=== PATIENT | female | born 1960 | race Caucasian/White ===

== ENCOUNTER → 2017-12-18 | Outpatient (CLI) | payer OTHER ==
[~2017-12-18] MED LIST: LIPI10TA OR; PENI500T PO; SYNT25TA; ZINCLOZ2 PO; ZOLO25TA PO
[2017-12-18 09:56] LABS: HEMATOCRIT 39.3 % (35.0-46.0); HEMOGLOBIN 13.1 GM/DL (11.6-15.3); MEAN CELL VOLUME 85.6 FL (80.0-100.0); MEAN CORPUSCULAR HEMOGLOBIN 28.6 PG (27.0-34.0); MEAN CORPUSCULAR HGB CONC 33.4 % (32.0-36.0); MEAN PLATELET VOLUME 9.2 FL (7.0-11.0); PLATELET COUNT 221 TH/MM3 (150-450); RED BLOOD COUNT 4.59 MIL/MM3 (4.00-5.30); RED CELL DISTRIBUTION WIDTH 13.1 % (11.6-17.2)
[2017-12-18 10:15] LABS: BILIRUBIN, URINE NEG (NEG); BLOOD, URINE NEG (NEG); GLUCOSE,URINE NEG (NEG); KETONE, URINE NEG (NEG); MUCUS URINE FEW /lpf (OCC); NITRITE,URINE NEG (NEG); URINE COLOR YELLOW (YELLW/STRAW); URINE LEUKOCYTE ESTERASE NEG (NEG)
[2017-12-18 10:23] LABS: PROTHROMBIN TIME - PATIENT 10.2 SEC (9.8-11.6)
[2017-12-18 10:48] LABS: ALBUMIN 3.8 GM/DL (3.4-5.0); AST (GOT) 16 U/L (15-37); BICARBONATE 27.7 MEQ/L (21.0-32.0); BLOOD UREA NITROGEN 11 MG/DL (7-18); CALCIUM 9.1 MG/DL (8.5-10.1); CHLORIDE 106 MEQ/L (98-107); GLOMERULAR FILTRATION RATE 102 ML/MIN (>89); SODIUM (NA) 142 MEQ/L (136-145)
[2017-12-18 10:51] LABS: GLUCOSE,FASTING 88 MG/DL (74-99)
[2017-12-18 10:59] LABS: ALKALINE PHOSPHATASE 89 U/L (45-117); ALT (GPT) 23 U/L (10-53); TOTAL BILIRUBIN ADULT 0.5 MG/DL (0.2-1.0); TOTAL PROTEIN 8.1 GM/DL (6.4-8.2)
== END ==
LOC: CPRE 08:02
PROVIDERS: ATTEND Surgery
DX: Z01.810 Encounter for preprocedural cardiovascular examination (principal); Z01.812 Encounter for preprocedural laboratory examination; Z01.818 Encounter for other preprocedural examination; M79.609 Pain in unspecified limb
CPT/HCPCS: 36415; 80053; 81001; 85027; 85610; 85730

== ENCOUNTER 2018-01-02 05:38 | Inpatient (IN) ==
[2018-01-02] MEDS ORDERED: Metoprolol Tartrate 25 MG Tablet PO SCH (06:30)
[2018-01-02] MEDS ORDERED: Chlorhexidine 4% Topical 120 APPLIC/120 ML Bottle TOPICAL SCH (06:30)
[2018-01-02] MEDS ORDERED: Bupivacaine/Epi PF 0.25% Inj 20 ML, Bupivacaine Liposo PF 1.3% Inj 20 ML, Sodium Chlor ... P-ARTICULR SCH ×2 (06:30)
[2018-01-02] MEDS ORDERED: Chlorhexidine Gluconate 2% 1 Pack (2 Cloths) TOPICAL SCH (06:30)
[2018-01-02] MEDS ORDERED: Propofol Inj 500 MG/50 ML Vial ONE ×2 (06:46)
[2018-01-02] MEDS ORDERED: Bupivacaine/Dextrose 0.75% Inj 2 ML Ampul ONE (06:46)
[2018-01-02] MEDS ORDERED: ceFAZolin 2 GM Premix Inj 2 GM/50 ML PIGGYBACK IV.SIG SCH (07:00)
[2018-01-02] MEDS ORDERED: Tranexamic Acid Inj 749 MG in Sodium Chlor 0.9% Inj 100 ML IV.SIG SCH ×4 (07:00)
[2018-01-02] MEDS ORDERED: Sodium Chlor 0.9% Inj 500 ML IV.SIG SCH (07:00)
[2018-01-02] MEDS ORDERED: Bupivacaine Liposomal PF 1.3% Inj 20 ML Vial ONE (07:05)
[2018-01-02] MEDS ORDERED: Bupivacaine PF 0.5% Inj 30 ML Vial ONE (07:05)
[2018-01-02] MEDS ORDERED: EPINEPHrine PF/SF Inj 1 MG/ML Ampul I-OCULAR ONE (07:06)
[2018-01-02] MEDS ORDERED: Dexamethasone Inj 20 MG/5 ML Vial ONE (07:37)
[2018-01-02] MEDS: Vancomycin Inj 1 GM/200 ML PIGGYBACK IV.SIG SCH ×2 (07:45→08:38)
[2018-01-02] MEDS ORDERED: Morphine Inj 4 MG/ML Vial IV.PUSH PRN (07:58)
[2018-01-02] MEDS ORDERED: Post-op Orders (for Pharmacy) OTHER STA (07:58)
[2018-01-02] MEDS ORDERED: Bisacodyl 10 MG Supp RECTAL PRN (07:58)
[2018-01-02] MEDS ORDERED: Tranexamic Acid Inj 1,000 MG in Sodium Chlor 0.9% Inj 100 ML IV.SIG ONE (07:58)
[2018-01-02] MEDS ORDERED: Dexamethasone PF Inj 10 MG/ML Vial IV.PUSH SCH (08:00)
--- NOTE | 2018-01-02 10:43 | MP ---
cc: Nellie Blankenship MD DATE OF OPERATION: 01/02/2018 PREOPERATIVE DIAGNOSIS: Osteoarthritic degeneration, right knee. POSTOPERATIVE DIAGNOSIS: Osteoarthritic degeneration, right knee. SURGERY PERFORMED: Right total knee arthroplasty using Consensus components size 4 femur, 2 tibia, 1 patella, 10 standard insert and 2 batches of antibiotic-impregnated cement. SURGEON: Nellie Blankenship MD JANITOR CUSTODIAN: James Diallo CFA ANESTHESIA: Spinal. PROCEDURE: After successful induction of anesthesia, the patient is placed on the operating room table in the supine position. The knee is prepped and draped in the usual manner. A tourniquet is inflated at the upper thigh and set to 300 mmHg pressure after exsanguination of the lower extremity. A longitudinal incision is made extending from 3 inches proximal to the superior pole of the patella, across the patella in longitudinal fashion, and down past the insertion of the tibial tubercle into the proximal tibia. The incision is carried down through subcutaneous tissue along the medial aspect of the patella and retinaculum, down through the capsule to expose the knee joint. The patella and patellar tendon are freed up enough to allow the patella to be inverted and retracted off the lateral side of the knee joint. The knee joint is left exposed. Small osteophytes are removed. All soft tissue is removed to allow proper position of the femoral and tibial cutting jig guide. The first femoral jig is then inserted along the distal end of the femur after first measuring to decide whether this is a small, medium, or large component. The notch is then drilled and the tibial cutting guide inserted into the femoral cutting guide, along with the ankle brace to allow for proper measurement of the tibial cutting surface that needed to be resected. Pins are inserted into the tibial cutting jig and femoral cutting jig to hold them in place. An oscillating saw is then used to resect the surface of the tibia. The surface of the tibia is then completely removed using sharp and blunt dissection. The anterior and posterior cuts of the femur are then made as well using an oscillating saw through the cutting guide. All guides are then removed and the varus/valgus angulation cutting guide applied to the femur for proper measurement of the proper amount of valgus. The anterior cutting guide for the femur is then inserted at the anterior femoral cuts made. Next, the first block trial is inserted into the femur to allow for proper condyle drill holes to be made which are then made followed by removal of the bone between the condyles using an oscillating saw as well as the bone removed at the most posterior surface of the condyle. After this, this guide is removed and the chamfer cuts made using the chamfer cutting guide from both anterior and posterior. Next, the femoral trial is then inserted, the tibial surface reflected anterior to expose the tibial surface and a tibial stem guide is inserted after first measuring for a standard, standard plus, large, or large plus surface to be used. After the stem is impacted the trial tibial surface is applied followed by the trial meniscal components. After full range of motion is found with the appropriate length meniscal components varying the patella is prepared by resecting the posterior aspect of the patella using an oscillating saw, inserting a trial. The trial is then removed and the cruciate cutting guide applied using the bur to cut the cruciate cuts. After cruciate cuts are made all trials are removed. The wound is irrigated copiously with antibiotic solution and Water Pik and the actual components inserted into place using the aforementioned components. After the cement has hardened and the components are found to have full range of motion with no instability, the tourniquet is deflated, total tourniquet time being 67 minutes at 300 mmHg pressure. The wound again is irrigated copiously with antibiotic solution, meticulous hemostasis achieved. 120 mL of a combination of Exparel, normal saline and 0.25% Marcaine plain used around the knee joint for extra pain control. Deep fascia approximated with running #2 Quill, subcutaneous tissue approximated using interrupted and running 2-0 and 4-0 Monocryl suture and Prineo dressing and knee immobilizer. No drain utilized. ESTIMATED BLOOD LOSS: 200 mL. COUNTS: Sponge and suture counts were correct. The patient tolerated the procedure well and left the operating room in satisfactory condition. JMD ANAM Fuentes/CORRINE , 10:30 AM , 10:42 AM
[2018-01-02] MEDS ORDERED: *morphine SULFATE 4 MG/ML PERIprocedure ONLY ONE (11:10)
[2018-01-02] MEDS ORDERED: *Meperidine Inj 25 MG/ML Vial PERIprocedural Use ONLY ONE (11:31)
--- NOTE | 2018-01-02 11:51 | XR ---
EXAM DATE: 01/02/2018 11:42 AM EDT AGE/SEX: 57 years / Female INDICATIONS: Post-op right knee. CLINICAL DATA: This is the patient's initial encounter. Patient reports that signs and symptoms have been present for 1 day and indicates a pain score of 3/10. MEDICAL/SURGICAL HISTORY: None. None. COMPARISON: No prior exams available for comparison. FINDINGS: Examination of the knee demonstrates total knee arthroplasty in satisfactory position. The alignment is anatomic. CONCLUSION: Postsurgical changes as above. Electronically signed by: Dmitri Krueger MD 01/02/2018 11:50 AM EDT
[2018-01-02] MEDS ORDERED: Phenylephrine/NS 1000 MCG/10ML Syringe IV.PUSH ONE (12:00)
[2018-01-02] MEDS: Senna/Docusate Sodium 8.6/50 MG Tablet PO SCH ×2 (20:43→20:44)
[2018-01-02] MEDS: Sertraline 50 MG Tablet PO SCH (20:43)
[2018-01-02] MEDS: Multivitamin/Minerals Therapeutic Tablet PO SCH ×2 (20:43→20:44)
[2018-01-03 06:47] LABS: Hematocrit 29.2 % (35.0-46.0)
--- NOTE | 2018-01-03 07:49 | P.PNOP ---
Subjective Interval history: Patient fairly comfortable postoperative day #1. No complaints. Dressing dry and intact. Neurovascular intact to toes. Able to do straight leg raise. Patient in bed at present time. Physical Exam Vital signs: Vital Signs 01/02/18 11:03 01/02/18 11:15 01/02/18 11:30 Temperature 97.8 F Pulse Rate 85 83 80 Respiratory Rate 15 14 12 Blood Pressure 108/56 L 96/53 L 99/64 L Pulse Oximetry 93 L 96 97 01/02/18 11:45 01/02/18 14:07 01/02/18 15:04 Temperature Pulse Rate 81 76 78 Respiratory Rate 12 15 15 Blood Pressure 100/53 L 129/61 126/69 Pulse Oximetry 100 96 95 01/02/18 16:00 01/02/18 20:00 01/02/18 21:10 Temperature 98.0 F 98.3 F Pulse Rate 82 80 Respiratory Rate 18 17 18 Blood Pressure 131/69 129/74 Pulse Oximetry 93 L 96 01/03/18 00:00 01/03/18 01:04 01/03/18 04:00 Temperature 98.0 F 98.1 F Pulse Rate 72 84 Respiratory Rate 17 18 18 Blood Pressure 123/70 134/60 Pulse Oximetry 98 97 01/03/18 05:03 Temperature Pulse Rate Respiratory Rate 18 Blood Pressure Pulse Oximetry Intake & Output 01/02/18 01/03/18 01/03/18 18:59 06:59 18:59 Intake Total 2157.49 / 2157.49 100 / 100 Balance 2157.49 / 2157.49 100 / 100 Weight 74.9 kg Intake: IV 1257.49 / 1257.49 100 / 100 LR 1000 mL Inj 1,000 ML @ 30 1000 / 1000 mls/hr IV.SIG .Q24H JANNETH Rx#: [id number] Cyklokapron Inj 749 MG In NS 107.49 / 107.49 Inj 100 ML @ 200 mls/hr IV.SIG ONCE JANNETH Rx#:[id number] Ancef 2 GM Premix Inj 2 gm In 50 / 50 50 ml @ 100 mls/hr IV.SIG ASSEMBLER UNIT JANNETH Rx#:[id number] Ancef Inj 1,000 MG In NS Inj 100 / 100 100 / 100 100 ML @ 200 mls/hr IV.SIG Q6H JANNETH Rx#:[id number] Oral 900 / 900 Other: Date of Last Bowel Movement 01/02/18 Results - Labs CBC & Chem 7: 01/03/18 06:10 Laboratory Results - last 24 hr 01/02/18 01/03/18 06:35 06:10 Hgb 10.0 L Hct 29.2 L Blood Type O Positive Blood Type Recheck Required Antibody Screen Negative - Imaging Impressions Knee X-Ray 01/02/18 07:58 CONCLUSION: Postsurgical changes as above. Assessment and Plan - Attending Attestation Attending Attestation: Patient to continue with physical therapy today plan on discharge either tomorrow or the next day depending on how she is doing. Eliquis as anticoagulation therapy ordered today.
[2018-01-03] MEDS: Senna/Docusate Sodium 8.6/50 MG Tablet PO SCH ×2 (08:07→20:19)
[2018-01-03] MEDS: Multivitamin/Minerals Therapeutic Tablet PO SCH ×2 (08:07→20:19)
[2018-01-03] MEDS: Sertraline 50 MG Tablet PO SCH (08:08)
[2018-01-04 06:47] LABS: Hematocrit 27.3 % (35.0-46.0); Hemoglobin 9.2 gm/dL (11.6-15.3)
[2018-01-04] MEDS: Multivitamin/Minerals Therapeutic Tablet PO SCH ×2 (09:05→21:00)
[2018-01-04] MEDS: Sertraline 50 MG Tablet PO SCH (09:06)
[2018-01-04] MEDS: Senna/Docusate Sodium 8.6/50 MG Tablet PO SCH ×2 (09:06→21:00)
--- NOTE | 2018-01-04 12:25 | P.PNOP ---
Subjective Interval history: Pt basically comfortable today with minimal pain. Physical Exam Vital signs: Vital Signs 01/03/18 13:27 01/03/18 17:29 01/03/18 18:04 Temperature 98.1 F Pulse Rate 75 Respiratory Rate 18 18 18 Blood Pressure 145/73 H Pulse Oximetry 98 01/03/18 20:00 01/03/18 21:37 01/04/18 00:00 Temperature 100.0 F H 99.6 F Pulse Rate 90 91 H Respiratory Rate 18 18 18 Blood Pressure 136/66 147/70 H Pulse Oximetry 96 95 01/04/18 02:04 01/04/18 04:00 01/04/18 08:00 Temperature 98.3 F 98.2 F Pulse Rate 93 H 91 H Respiratory Rate 17 18 18 Blood Pressure 135/82 136/72 Pulse Oximetry 94 L 96 Intake & Output 01/03/18 01/04/18 01/04/18 18:59 06:59 18:59 Other: # Voids 5 Date of Last Bowel Movement 01/02/18 01/03/18 01/03/18 # Bowel Movements 1 Results - Labs CBC & Chem 7: 01/04/18 05:44 Laboratory Results - last 24 hr 01/04/18 05:44 Hgb 9.2 L Hct 27.3 L Assessment and Plan - Attending Attestation Attending Attestation: Dressing dry and intact. NV intact to toes. No calf tenderness. Home tomorrow with PT and [facility].
[2018-01-05] MEDS: Multivitamin/Minerals Therapeutic Tablet PO SCH ×2 (09:03→20:27)
[2018-01-05] MEDS: Sertraline 50 MG Tablet PO SCH (09:03)
[2018-01-05] MEDS: Senna/Docusate Sodium 8.6/50 MG Tablet PO SCH ×2 (09:04→20:28)
--- NOTE | 2018-01-05 15:11 | P.DCO ---
- Physical Therapy Order: Evaluate and treat, Strength and gait training - Certification I have seen patient Abby Zuniga on 01/05/18. My clinical findings support the need for the requested home health care services because: High risk of falls I certify that my clinical findings support that this patient is homebound because: Post-op weakness, Unsteady gait/balance
--- NOTE | 2018-01-05 15:57 | P.PNOP ---
Subjective Interval history: Patient more comfortable today. No complaints. Physical Exam Vital signs: Vital Signs 01/04/18 16:00 01/04/18 20:00 01/05/18 00:00 Temperature 98.1 F 98.8 F 99.7 F H Pulse Rate 95 H 89 100 H Respiratory Rate 18 13 14 Blood Pressure 126/68 126/64 136/63 Pulse Oximetry 96 94 L 90 L 01/05/18 06:45 01/05/18 10:53 01/05/18 12:00 Temperature 99.0 F 97.4 F L 98.3 F Pulse Rate 92 H 100 H 91 H Respiratory Rate 15 17 16 Blood Pressure 142/69 H 136/61 133/58 L Pulse Oximetry 95 98 95 Intake & Output 01/04/18 01/05/18 01/05/18 18:59 06:59 18:59 Intake Total 700 / 700 Balance 700 / 700 Intake: Oral 700 / 700 Other: # Voids 8 1 Date of Last Bowel Movement 01/03/18 01/03/18 01/05/18 Results - Labs CBC & Chem 7: 01/04/18 05:44 Assessment and Plan - Problem List (1) Status post total right knee replacement using cement Code(s): Z96.651 - Presence of right artificial knee joint Status: Acute - Attending Attestation Attending Attestation: Wound is clean and dry. She is ambulating well with her walker in the malave. There is no calf tenderness. Plan is for home tomorrow with home health care and physical therapy.
[2018-01-06] MEDS: Sertraline 50 MG Tablet PO SCH (09:26)
[2018-01-06] MEDS: Multivitamin/Minerals Therapeutic Tablet PO SCH (09:27)
[2018-01-06] MEDS: Senna/Docusate Sodium 8.6/50 MG Tablet PO SCH (09:44)
--- NOTE | 2018-05-04 12:36 | MD ---
cc: Nellie Blankenship MD DATE OF DISCHARGE: 01/06/2018 DATE OF ADMISSION: 01/02/2018 DATE OF DISCHARGE: 01/06/2018 ADMITTING DIAGNOSIS: Osteoarthritic degeneration, right knee. DISCHARGE DIAGNOSIS: Osteoarthritic degeneration, right knee. DISCHARGE SUMMARY: Pleasant 57-year-old female who was admitted on 01/02/2018 with osteoarthritic degeneration, right knee, for which she underwent a right total knee arthroplasty. She received a course of prophylactic IV antibiotics and within 23 hours, started and anticoagulation therapy. Continued to improve, remaining afebrile. Vital signs stable. Neurovascularly intact and began out of bed, tolerating food and fluid well and p.o. pain medication. She was discharged to home with home health care in good condition on 01/06/2018 with instructions for return to the office for a followup recheck. JNupur Blankenship MD JRR/es , 11:56 AM , 12:02 PM
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
== END 2018-01-06 11:14 | disposition home health service (06) ==
LOC: HSDI 05:38 → EDSTATUS 07:30 → N06 15:07
PROVIDERS: ADMIT Surgery; ATTEND Surgery
DX: M17.11 Unilateral primary osteoarthritis, right knee